=== PATIENT | male | born 1975 | race Caucasian/White ===

== ENCOUNTER → 2017-07-28 | Outpatient (CLI) | payer OTHER ==
[~2017-07-28] MED LIST: NO HOME MEDICATIONS
== END ==
LOC: MHCPAIN 09:18
DX: G89.29 Other chronic pain (principal); M47.27 Other spondylosis with radiculopathy, lumbosacral region
CPT/HCPCS: G0463

== ENCOUNTER → 2017-10-04 | Outpatient (CLI) | payer OTHER | LOC: MHCPAIN 14:53 | DX: Z01.89 Encounter for other specified special examinations (principal) ==

== ENCOUNTER → 2017-10-11 | Outpatient (CLI) | payer OTHER | LOC: MHCPAIN 14:34 | DX: G89.29 Other chronic pain (principal); M47.27 Other spondylosis with radiculopathy, lumbosacral region; M48.061 Spinal stenosis, lumbar region without neurogenic claudication | CPT/HCPCS: G0463 ==

== ENCOUNTER → 2017-11-18 | Outpatient (CLI) | payer OTHER | LOC: MHCPAIN 08:21 | DX: M47.27 Other spondylosis with radiculopathy, lumbosacral region (principal); M51.17 Intervertebral disc disorders with radiculopathy, lumbosacral region; M48.061 Spinal stenosis, lumbar region without neurogenic claudication | CPT/HCPCS: J1100; J2250; J3010; Q9967 ==

== ENCOUNTER → 2017-12-29 | Outpatient (CLI) | payer OTHER | LOC: MHCPAIN 07:52 | DX: G89.29 Other chronic pain (principal); M47.817 Spondylosis without myelopathy or radiculopathy, lumbosacral region; M54.16 Radiculopathy, lumbar region; M48.061 Spinal stenosis, lumbar region without neurogenic claudication | CPT/HCPCS: G0463 ==

== ENCOUNTER → 2018-01-20 | Outpatient (CLI) | payer OTHER | LOC: MHCPAIN 09:01 | DX: M47.817 Spondylosis without myelopathy or radiculopathy, lumbosacral region (principal) | CPT/HCPCS: J1040; Q9967 ==

== ENCOUNTER → 2018-03-07 | Outpatient (CLI) | payer OTHER | LOC: MHCPAIN 12:17 | DX: G89.29 Other chronic pain (principal); M47.27 Other spondylosis with radiculopathy, lumbosacral region; M48.061 Spinal stenosis, lumbar region without neurogenic claudication; M53.3 Sacrococcygeal disorders, not elsewhere classified | CPT/HCPCS: G0463 ==

== ENCOUNTER → 2018-03-17 | Outpatient (CLI) | payer OTHER | LOC: MHCPAIN 09:37 | DX: M47.27 Other spondylosis with radiculopathy, lumbosacral region (principal); M51.36 Other intervertebral disc degeneration, lumbar region | CPT/HCPCS: J1040; Q9967 ==

== ENCOUNTER 2018-04-12 12:09 | Day surgery (SDC) | payer OTHER ==
[~2018-04-12] VITALS: Ht 170.2 cm; Wt 91.4 kg
[2018-04-12 12:31] VITALS: BP 117/84; PULSE 65; TEMP 97.9
[2018-04-12] MEDS ORDERED: RT ADVAIR HFA 1112 G IH (13:05)
[2018-04-12] MEDS ORDERED: PROAIR HFA0.09 MG/AC IH (13:06)
[2018-04-12] MEDS ORDERED: ASPIRIN 81M81 MG/TA2 PO (13:07)
[2018-04-12] MEDS ORDERED: LIPITOR 40MG TA40 MG PO (13:08)
[2018-04-12] MEDS ORDERED: DOMEBORO PACKET1 PKT TP (13:10)
[2018-04-12] MEDS ORDERED: LIDODERM 5% PATC1 EA TP (13:12)
[2018-04-12] MEDS ORDERED: ROBAXIN 50500 MG/TAB PO (13:13)
[2018-04-12] MEDS ORDERED: [UNRECOGNIZED DRUG - OTHER] RC (13:16)
[2018-04-12] MEDS ORDERED: REFRESH PLUS 00.4 M1 OP (13:17)
[2018-04-12] MEDS ORDERED: VIAGRA100 M1 PO (13:18)
[2018-04-12] MEDS ORDERED: ZOLOFT 100MG100 MG PO (13:18)
[2018-04-12] MEDS ORDERED: IMITREX ST6 MG/0.51 (13:20)
[2018-04-12] MEDS ORDERED: TIROSINT100 MC1 PO (13:20)
[2018-04-12] MEDS ORDERED: AMBIEN 10MG10 MG PO (13:21)
[2018-04-12] MEDS ORDERED: VOLTAREN 75 DR75 MG PO (13:22)
[2018-04-12] MEDS ORDERED: MAG-OX 400400 MG/TAB PO (13:23)
[2018-04-12] MEDS ORDERED: RIBOFLAVIN100 MG PO (13:24)
[2018-04-12] MEDS ORDERED: ZOFRAN 4MG T4 MG/TAB PO (13:24)
[2018-04-12] MEDS ORDERED: EPA FISH OIL1 SGL PO (13:25)
[2018-04-12] MEDS ORDERED: TOPAMAX 25MG25 M1 PO (13:25)
[2018-04-12] MEDS ORDERED: [UNRECOGNIZED DRUG - OTHER] TP (13:27)
[2018-04-12] MEDS ORDERED: FLAREX 5 ML5 M1 OP (13:28)
[2018-04-12] MEDS ORDERED: GAS RELIEF 8080 MG PO (13:28)
[2018-04-12] MEDS ORDERED: SINGULAIR 110 MG/TAB PO (13:29)
[2018-04-12] MEDS ORDERED: ZYRTEC 10MG10 MG PO (13:30)
[2018-04-12] MEDS ORDERED: PRILOSEC 20MG20 MG PO (13:30)
[2018-04-12] MEDS ORDERED: LEVBID0.375 MG (14:09)
[2018-04-12 14:20] VITALS: BP 111/78; PULSE 66; TEMP 97.4
[2018-04-12 14:30] VITALS: BP 114/84; PULSE 64
[2018-04-12 14:45] VITALS: BP 115/86; PULSE 60
[2018-04-12 15:03] VITALS: BP 120/63; PULSE 74
== END 2018-04-12 15:05 | disposition home or self-care (01) ==
LOC: SDCO 12:09
DX: K64.0 First degree hemorrhoids (principal); R19.7 Diarrhea, unspecified; K29.30 Chronic superficial gastritis without bleeding; R13.10 Dysphagia, unspecified; K59.09 Other constipation; K62.5 Hemorrhage of anus and rectum; F32.9 Major depressive disorder, single episode, unspecified; F41.9 Anxiety disorder, unspecified; J45.909 Unspecified asthma, uncomplicated; Z79.82 Long term (current) use of aspirin
CPT/HCPCS: OP; J2704; J7120

== ENCOUNTER → 2018-05-03 | Outpatient (CLI) | payer OTHER ==
[~2018-05-03] MED LIST changes: +AMBIEN 10MG10 MG PO; +ASPIRIN 81M81 MG/TA2 PO; +DOMEBORO PACKET1 PKT TP; +EPA FISH OIL1 SGL PO; +FLAREX 5 ML5 M1 OP; +GAS RELIEF 8080 MG PO; +IMITREX ST6 MG/0.51; +LEVBID0.375 MG; +LIDODERM 5% PATC1 EA TP; +LIPITOR 40MG TA40 MG PO; +MAG-OX 400400 MG/TAB PO; +PRILOSEC 20MG20 MG PO; +PROAIR HFA0.09 MG/AC IH; +REFRESH PLUS 00.4 M1 OP; +RIBOFLAVIN100 MG PO; +ROBAXIN 50500 MG/TAB PO; +RT ADVAIR HFA 1112 G IH; +SINGULAIR 110 MG/TAB PO; +TIROSINT100 MC1 PO; +TOPAMAX 25MG25 M1 PO; +VIAGRA100 M1 PO; +VOLTAREN 75 DR75 MG PO; +ZOFRAN 4MG T4 MG/TAB PO; +ZOLOFT 100MG100 MG PO; +ZYRTEC 10MG10 MG PO; +[UNRECOGNIZED DRUG - OTHER] RC; +[UNRECOGNIZED DRUG - OTHER] TP
== END ==
LOC: MHCPAIN 13:50
DX: G89.29 Other chronic pain (principal); M47.817 Spondylosis without myelopathy or radiculopathy, lumbosacral region; M54.16 Radiculopathy, lumbar region; M53.3 Sacrococcygeal disorders, not elsewhere classified; M48.061 Spinal stenosis, lumbar region without neurogenic claudication
CPT/HCPCS: G0463

== ENCOUNTER 2018-08-29 06:57 | Day surgery (SDC) | payer OTHER ==
[2018-08-29] VITALS (8 sets, daily range): BP systolic 112–131; BP diastolic 72–82; PULSE 68–94; TEMP 98
[~2018-08-29] VITALS: Ht 170.3 cm; Wt 94.3 kg
[2018-08-29 07:25] LABS: HEMATOCRIT 49.3 % (42.0-52.0); HEMOGLOBIN 17.9 g/dl (13.5-18.0); MEAN CELL VOLUME 86 fl (80.0-100.0); MEAN CORPUSCULAR HEMOGLOBIN 31 pg (27.0-31.0); MEAN CORPUSCULAR HGB CONC 36 g/dl (33.0-37.0); MEAN PLATELET VOLUME 9.2 fl (7.4-10.4); PLATELET COUNT 256 K/mm3 (130-400); RED BLOOD COUNT 5.75 M/mm3 (4.20-5.60)
[2018-08-29 07:26] LABS: INR 1.1 (0.8-3.0); PROTHROMBIN TIME 12.5 SECONDS (9.7-12.8)
[2018-08-29 07:38] LABS: CALCIUM 9.4 mg/dL (8.4-10.2); CREATININE, serum 1.03 mg/dL (0.66-1.25); POTASSIUM 4.2 mmol/L (3.4-5.0)
[2018-08-29] MEDS ORDERED: NORVASC2.5 MG PO (12:58)
== END 2018-08-29 13:26 | disposition home or self-care (01) ==
LOC: MEDICAL 06:57 → COL.CAR 06:57
PROVIDERS: Internal Medicine Cardiovascular Disease
DX: I20.0 Unstable angina (principal); R55 Syncope and collapse; Z82.49 Family history of ischemic heart disease and other diseases of the circulatory system; E78.2 Mixed hyperlipidemia; E07.9 Disorder of thyroid, unspecified; J45.909 Unspecified asthma, uncomplicated; Z79.899 Other long term (current) drug therapy; Z79.82 Long term (current) use of aspirin
CPT/HCPCS: OP; J1644; J2250; J3010; Q9967

== ENCOUNTER 2019-07-11 08:15 | Day surgery (SDC) | payer OTHER ==
[2019-07-11] VITALS (7 sets, daily range): BP systolic 94–115; BP diastolic 70–83; PULSE 54–71; TEMP 98.6
[~2019-07-11] VITALS: Ht 170.5 cm; Wt 93.2 kg
[~2019-07-11 08:15] MED LIST changes: +NORVASC2.5 MG PO; -RT ADVAIR HFA 1112 G IH; +RT ADVAIR HFA 2312 G IH; +SYNTHROID0.1 MG/TAB PO; -TIROSINT100 MC1 PO; +TOPAMAX 100MG100 M1 PO; -TOPAMAX 25MG25 M1 PO; +VIAGRA 25MG TAB25 MG PO; -VIAGRA100 M1 PO
[2019-07-11] MEDS ORDERED: VENLAFAXINE225 MG PO (10:00)
[2019-07-11] MEDS ORDERED: REQUIP 1MG T1 MG/TAB PO (10:01)
[2019-07-11] MEDS ORDERED: SEROQUEL 2525 MG/TAB PO (10:01)
[2019-07-11] MEDS ORDERED: MINIPRESS 1M1 MG/CAP PO (10:02)
[2019-07-11] MEDS ORDERED: MINIPRESS2 MG PO (10:03)
[2019-07-11] MEDS ORDERED: CARTIA XT180 MG PO (10:03)
[2019-07-11] MEDS ORDERED: IMITREX100 MG PO (10:04)
[2019-07-11] MEDS ORDERED: NITROSTAT0.4 MG/TAB SL (10:05)
[2019-07-11] MEDS ORDERED: ALBUTEROL0.83 MG/ML IH (10:05)
[2019-07-11] MEDS ORDERED: MYRBETR25MG PO (10:06)
[2019-07-11] MEDS ORDERED: MASON NATURAL2000 IU PO (10:07)
[2019-07-11] MEDS ORDERED: VOLTAREN GEL 1%1 TU TP (10:08)
[2019-07-11] MEDS ORDERED: PROCTOFOAM-HC F10 G1 RC (10:09)
[2019-07-11] MEDS ORDERED: LAMISIL1% TOP (10:10)
[2019-07-11] MEDS ORDERED: LAC-HYDRIN LOT 225GM TP (10:10)
[2019-07-11] MEDS ORDERED: NIZORAL SHAMPO120 M1 TP (10:11)
[2019-07-11] MEDS ORDERED: TRIAMCINOLONE A15 G3 TP (10:12)
[2019-07-11] MEDS ORDERED: VANICREAM LITE240 ML TP (10:12)
[2019-07-11] MEDS ORDERED: REFRESH LIQUIGE15 M1 OP (10:13)
[2019-07-11] MEDS ORDERED: LINZESS145CAP PO ×2 (10:29→10:30)
--- NOTE | 2019-07-11 10:36 | NUR ---
Pt to [facility] for procedure, transported by Chau OCHOA via stretcher
--- NOTE | 2019-07-11 10:45 | NUR ---
SEE MERGE DOCUMENTATION FOR MEDICATION ADMINISTRATION TIMES AND INTRA/POST PROCEDURE SEDATION ASSESSMENTS. PT TO RECEIVE ANCEF PREPROCEDURE PER ; DANIELLE.
[2019-07-11] MEDS ORDERED: CEPHALEXIN500 M1 PO (11:29)
--- NOTE | 2019-07-11 11:37 | NUR ---
Pt returned from procedure,report from DON Ritchie.
--- NOTE | 2019-07-11 11:39 | NUR ---
Pt back from procedure, report received from Chau OCHOA. Pt is awake and alert, satting 96% on room air. clean dry gauze dressing to left upper chest. pt on monitor for post op vitals. Pt reports plans to call his for transport home when he is discharged. Pt updated on poc for monitoring. no questions at this time.
--- NOTE | 2019-07-11 12:14 | NUR ---
Pt recovering nicely, sitting up in high fowlers, having some breakfast. remains p,w,d, resp reg and unlabored. dressing dry/ clean and intact.
--- NOTE | 2019-07-11 12:58 | NUR ---
Discharge instructions given to pt.Pt verbalizes understanding.INT removed,catheter tip intact.Pt eacorted out via wheelchair by Howard Camarena.
--- NOTE | 2019-07-11 13:05 | NUR ---
Pt was discharged from [facility], picked pt up. Pt remained p,w,d, with no complaints during his recovery. Reviewed follow up instructions and instructions r/t loop removal with patient. Pt given hand written work release. Pt verbed understanding of dc instructions. ambulatory with steady gait. saline lock removed, pressure dressing applied. escorted to exit via wheelchair.
== END 2019-07-11 13:11 | disposition home or self-care (01) ==
LOC: COL.CAR 08:15
DX: R55 Syncope and collapse (principal); I73.9 Peripheral vascular disease, unspecified; J45.909 Unspecified asthma, uncomplicated; E78.5 Hyperlipidemia, unspecified
CPT/HCPCS: J0690; J2250; J3010; J7030; J7050

== ENCOUNTER 2019-09-29 16:30 | Outpatient (RCR) | payer OTHER ==
[2019-08-17 13:49] VITALS: BP 133/79; PULSE 67; TEMP 97.6
[2019-08-31 15:00] VITALS: BP 132/86; PULSE 61; TEMP 98.1
--- NOTE | 2019-08-31 16:05 | NUR ---
Pt discharged via ambulatory.Denies symtoms of reaction to this nurse.
[2019-09-15 14:11] VITALS: BP 115/79; PULSE 62; TEMP 97.4
[~2019-09-29] VITALS: Ht 170.2 cm; Wt 89.6 kg
[2019-09-29 15:52] VITALS: BP 144/81; PULSE 57; TEMP 97.3
--- NOTE | 2019-09-29 16:18 | NUR ---
Per pt report,he has had a change in insurance.Dr kirk aware per pt.Pt has his own medicine here today to administer.Will not schedule next apt until new PA obtained.Pt verbalizes understanding.
[~2019-09-29 16:30] MED LIST changes: +ALBUTEROL0.83 MG/ML IH; +CARTIA XT180 MG PO; +CEPHALEXIN500 M1 PO; +CIALIS10 MG PO; +IMITREX100 MG PO; +LAC-HYDRIN LOT 225GM TP; +LAMISIL1% TOP; +LINZESS145CAP PO; +MASON NATURAL2000 IU PO; +MINIPRESS 1M1 MG/CAP PO; +MINIPRESS2 MG PO; +MYRBETR25MG PO; +NITROSTAT0.4 MG/TAB SL; +NIZORAL SHAMPO120 M1 TP; +PROCTOFOAM-HC F10 G1 RC; +REFRESH LIQUIGE15 M1 OP; +REQUIP 1MG T1 MG/TAB PO; +SEROQUEL 2525 MG/TAB PO; +TRIAMCINOLONE A15 G3 TP; +VANICREAM LITE240 ML TP; +VENLAFAXINE225 MG PO; +VOLTAREN GEL 1%1 TU TP
== END 2019-09-30 16:00 | disposition home or self-care (01) ==
LOC: EUO 16:30
DX: J45.909 Unspecified asthma, uncomplicated (principal); Z79.899 Other long term (current) drug therapy
CPT/HCPCS: J2357

== ENCOUNTER 2019-11-13 14:08 | Outpatient (RCR) | payer OTHER ==
[~2019-11-13] VITALS: Ht 170.2 cm; Wt 88.7 kg
[2019-11-13 14:36] VITALS: BP 117/75; PULSE 55; TEMP 97.4
== END 2019-12-06 14:58 | disposition still patient (30) ==
LOC: EUO 14:08
DX: J45.909 Unspecified asthma, uncomplicated (principal); Z79.51 Long term (current) use of inhaled steroids
CPT/HCPCS: J2357

== ENCOUNTER 2020-05-10 14:00 | Outpatient (RCR) | payer OTHER ==
[2020-02-23 14:51] VITALS: BP 135/83; PULSE 67; TEMP 98.2
[2020-03-08 14:34] VITALS: BP 124/73; PULSE 82; TEMP 98.2
[2020-03-22 14:17] VITALS: BP 136/88; PULSE 80; TEMP 98.4
[2020-04-12 08:10] VITALS: BP 111/81; PULSE 78; TEMP 97.7
[2020-04-26 14:34] VITALS: BP 115/72; PULSE 67; TEMP 98.2
[~2020-05-10] VITALS: Ht 170.2 cm; Wt 93.7 kg
[~2020-05-10 14:00] MED LIST changes: +REMERON30 MG PO; +ZANAFLEX CAPSULE4 MG PO
[2020-05-10 15:00] VITALS: BP 135/82; PULSE 80; TEMP 98.6
== END 2020-05-23 | disposition still patient (30) ==
LOC: EUO
DX: J45.909 Unspecified asthma, uncomplicated (principal); Z79.899 Other long term (current) drug therapy
CPT/HCPCS: J2357

== ENCOUNTER 2020-07-12 14:00 | Outpatient (RCR) | payer OTHER ==
[2020-05-24 16:10] VITALS: BP 121/55; PULSE 70; TEMP 97.9
[2020-06-10 13:53] VITALS: BP 136/81; PULSE 74; TEMP 98.5
[2020-06-21 16:16] VITALS: BP 112/86; PULSE 83; TEMP 98.1
[~2020-07-12] VITALS: Ht 170.2 cm; Wt 96.4 kg
[2020-07-12 13:30] VITALS: BP 114/79; PULSE 75; TEMP 98
== END 2020-07-25 14:42 | disposition home or self-care (01) ==
LOC: EUO 14:00
DX: C92.01 Acute myeloblastic leukemia, in remission (principal); J45.909 Unspecified asthma, uncomplicated; Z79.899 Other long term (current) drug therapy
CPT/HCPCS: J2357

== ENCOUNTER 2020-10-10 14:00 | Outpatient (RCR) | payer OTHER ==
[2020-07-26 16:38] VITALS: BP 129/78; PULSE 68; TEMP 98.4
[2020-08-16 16:16] VITALS: BP 123/88; PULSE 77
[2020-09-04 15:53] VITALS: BP 131/84; PULSE 70; TEMP 98.2
[2020-09-18 16:00] VITALS: BP 123/81; PULSE 69; TEMP 98.3
[~2020-10-10] VITALS: Ht 170.2 cm; Wt 100.4 kg
[2020-10-10 14:16] VITALS: BP 124/85; PULSE 64; TEMP 97.5
== END 2020-10-24 ==
LOC: EUO
DX: J45.909 Unspecified asthma, uncomplicated (principal); Z79.899 Other long term (current) drug therapy
CPT/HCPCS: J2357

== ENCOUNTER 2020-12-27 14:00 | Outpatient (RCR) | payer OTHER ==
[2020-11-01 14:17] VITALS: BP 129/80; PULSE 73; TEMP 98.4
[2020-11-15 13:56] VITALS: PULSE 72; TEMP 98.2
[2020-11-29 14:14] VITALS: BP 118/40; PULSE 72; TEMP 98.6
[2020-12-13 14:15] VITALS: BP 112/79; PULSE 68; TEMP 98.3
[~2020-12-27] VITALS: Ht 170.2 cm; Wt 101.6 kg
[~2020-12-27 14:00] MED LIST changes: +TUCKS50% TP; -[UNRECOGNIZED DRUG - OTHER] TP
[2020-12-27 14:39] VITALS: BP 125/78; PULSE 76; TEMP 98
== END 2020-12-27 14:45 | disposition home or self-care (01) ==
LOC: EUO 14:00
DX: J45.909 Unspecified asthma, uncomplicated (principal); Z79.899 Other long term (current) drug therapy
CPT/HCPCS: J2357

== ENCOUNTER 2021-01-10 13:32 | Outpatient (CLI) | payer OTHER ==
[~2021-01-10] VITALS: Ht 170.2 cm; Wt 102.6 kg
[2021-01-10 13:38] VITALS: BP 122/81; PULSE 83; TEMP 98.3
== END 2021-01-10 15:29 | disposition home or self-care (01) ==
LOC: EUO 13:32
DX: J45.909 Unspecified asthma, uncomplicated (principal); Z79.899 Other long term (current) drug therapy
CPT/HCPCS: J2357

== ENCOUNTER 2021-01-24 13:29 | Outpatient (CLI) | payer OTHER ==
[~2021-01-24] VITALS: Ht 170.2 cm; Wt 103.4 kg
[2021-01-24 14:13] VITALS: BP 136/82; PULSE 85; TEMP 98
== END 2021-01-24 14:27 | disposition home or self-care (01) ==
LOC: EUO 13:29
DX: J45.909 Unspecified asthma, uncomplicated (principal); Z79.899 Other long term (current) drug therapy
CPT/HCPCS: J2357

== ENCOUNTER 2021-02-07 13:25 | Outpatient (CLI) | payer OTHER ==
[~2021-02-07] VITALS: Ht 170.2 cm; Wt 104.6 kg
[2021-02-07 14:04] VITALS: BP 121/83; PULSE 76; TEMP 97.4
== END 2021-02-07 14:00 | disposition home or self-care (01) ==
LOC: EUO 13:25
DX: J45.50 Severe persistent asthma, uncomplicated (principal); Z79.899 Other long term (current) drug therapy
CPT/HCPCS: J2357

== ENCOUNTER 2021-02-21 13:31 | Outpatient (CLI) | payer OTHER ==
[~2021-02-21] VITALS: Ht 170.2 cm; Wt 104.0 kg
[2021-02-21 13:57] VITALS: BP 121/75; PULSE 76; TEMP 98.3
--- NOTE | 2021-02-21 14:09 | NUR ---
pER PT REPORT HE HAS MULTIPLE ALLERIGIES BUT UNABLE TO VERBALIZE.PT HAS RECEIVED XOLAIR FOR PERIOD OF TIME AT HOSPITAL FOR THESE ALLERGIES.PHARMACY,[facility] ASSISTING TO LOOK UP PRIOR LIST OF ALLERGIES.THIS NURSE REQUESTED PT TO BRING ALLERGY LIST TO NEXT APT.
--- NOTE | 2021-02-21 14:14 | NUR ---
[facility]ED [facility] TO REQUEST NEW COPY OF PA.
== END 2021-02-21 14:14 | disposition home or self-care (01) ==
LOC: EUO 13:31
DX: J45.50 Severe persistent asthma, uncomplicated (principal); Z79.899 Other long term (current) drug therapy
CPT/HCPCS: J2357

== ENCOUNTER 2021-03-07 13:38 | Outpatient (CLI) | payer OTHER ==
[~2021-03-07] VITALS: Ht 170.2 cm; Wt 104.5 kg
[2021-03-07 14:20] VITALS: BP 123/74; PULSE 82; TEMP 97.9
== END 2021-04-02 14:26 ==
LOC: EUO 13:38
DX: J45.50 Severe persistent asthma, uncomplicated (principal); Z79.899 Other long term (current) drug therapy
CPT/HCPCS: J2357

== ENCOUNTER 2021-04-04 13:32 | Outpatient (CLI) | payer OTHER ==
[~2021-04-04] VITALS: Ht 170.2 cm; Wt 103.0 kg
[2021-04-04 14:00] VITALS: BP 117/88; PULSE 81; TEMP 98.3
== END 2021-04-04 18:29 | disposition home or self-care (01) ==
LOC: EUO 13:32
DX: J45.50 Severe persistent asthma, uncomplicated (principal); Z79.899 Other long term (current) drug therapy
CPT/HCPCS: J2357

== ENCOUNTER → 2023-02-17 | Outpatient (CLI) | payer OTHER ==
[~2023-02-17] MED LIST changes: +NEURONTIN300 MG/CAP PO; +ZETIA 10MG TAB10 MG PO
== END ==
LOC: COL.PUL 09:33
DX: J45.909 Unspecified asthma, uncomplicated (principal)

== ENCOUNTER 2024-08-15 06:55 | Day surgery (SDC) | payer OTHER ==
[~2024-08-15] VITALS: Ht 170.2 cm; Wt 101.7 kg
[2024-08-15] VITALS (7 sets, daily range): BP systolic 121–138; BP diastolic 68–87; PULSE 70–80; TEMP 97.8–98.3
[~2024-08-15 06:55] MED LIST changes: +LR 1,000 ML IV SCH
[2024-08-15] MEDS ORDERED: GLUCOPHAGE500 MG/TAB PO (07:57)
[2024-08-15] MEDS ORDERED: Ondansetron 4 MG/2 ML VIAL ONE (08:17)
[2024-08-15] MEDS ORDERED: Lidocaine PF 2% (20 MG/ML) 5 ML VIAL ONE (08:17)
[2024-08-15] MEDS ORDERED: fentaNYL 50 MCG/ML 2 ML VIAL ONE (08:18)
[2024-08-15] MEDS ORDERED: fentaNYL 50 MCG/ML 1 ML SYRINGE/VIAL [PACU/SDC ONLY] IV PRN (08:45)
[2024-08-15] MEDS ORDERED: Meperidine 50 MG/ML 1 ML VIAL IV PRN (08:45)
[2024-08-15] MEDS ORDERED: hydrALAZINE 20 MG/ML 1 ML VIAL IV PRN (08:45)
[2024-08-15] MEDS ORDERED: Ondansetron 4 MG/2 ML VIAL IV PRN ×2 (08:45→09:45)
[2024-08-15] MEDS ORDERED: HYDROmorphone 1 MG/1 ML SYRINGE [PACU/SDC ONLY] IV PRN (08:45)
[2024-08-15] MEDS ORDERED: Lidocaine PF 2% (20 MG/ML) 10 ML POLY AMP IJ ONE (09:12)
[2024-08-15] MEDS ORDERED: Morphine 4 MG/ML VIAL IV PRN (09:45)
[2024-08-15] MEDS ORDERED: NORCO 325 MG-51 TAB PO (09:47)
[2024-08-15] MEDS ORDERED: Ketorolac 15 MG/ML VIAL IV SCH (10:19)
--- NOTE | 2024-08-15 15:55 | NUR ---
1050- PT BACK FROM PACU TO [facility] VIA CART. REPORT RECIEVED FROM DON CONTRERAS. VSS. PT SAYS HE IS IN 10/10 PAIN AND IN OBVIOUS DISCOMPORT WITH MOANING. BEN, GAVE MEDS IN PACU AND STILL NO RELIEF. ICE PACK ON SITE. CALL LIGHT WITH IN REACH. NO OTHER NEEDS AT THIS TIME. 1100- GAVE FOOD AND DRINK WITH NORCO GIVEN AT THIS TIME. NO COMPLICATIONS NOOTED. 1130- PT REPORTING PAIN AT 9/10. TOOK FOOD AND DRINK WELL. 1145- PT STILL AT 9/10 PAIN. REPEATED NORCO AGAIN. 1200- PT UP TO BATHROOM WITH ASSIST. STILL IN PAIN BUT SAYS IT IS COMING DOWN. 1215- PT REPORTING 6/10 PAIN. PT STATES "I AM COMFORTABLE WITH THIS LEVEL OF PAIN". 1305- DISCHARGE PAPERWORK GIVEN ALONG WITH SUPPLIES TO GO HOME WITH. 1310- PT TRANSFERRED OUT OF THE HOSPITAL VIA WHEELCHAIR TO OWN PRIVATE VEHICLE DRIVEN BY .
== END 2024-08-15 13:10 | disposition home or self-care (01) ==
LOC: SDCO 06:55
DX: K64.0 First degree hemorrhoids (principal); K60.1 Chronic anal fissure; K62.5 Hemorrhage of anus and rectum; K62.89 Other specified diseases of anus and rectum; K21.9 Gastro-esophageal reflux disease without esophagitis; Z79.899 Other long term (current) drug therapy
CPT/HCPCS: J0690; J1171; J1885; J2270; J2405; J2704; J3010; J7120